=== PATIENT | male | born 1940 | race Caucasian/White ===

== ENCOUNTER 2019-03-22 15:12 | Emergency (ER) | payer MEDICARE ==
[~2019-03-22] VITALS: Ht 177.8 cm; Wt 128.6 kg
[2019-03-22 15:35] VITALS: Ht 177.8 cm; Wt 128.6 kg
[2019-03-22] MEDS ORDERED: OMEPRAZOLE20 M1 PO (15:37)
[2019-03-22] MEDS ORDERED: CRESTOR20 MG PO (15:37)
[2019-03-22] MEDS ORDERED: LASIX40 MG (15:38)
[2019-03-22] MEDS ORDERED: CHLORTHALIDONE25 MG PO (15:38)
[2019-03-22] MEDS ORDERED: TENORMIN25 MG PO (15:38)
[2019-03-22] MEDS ORDERED: CARDURA8 MG PO (15:39)
[2019-03-22] MEDS ORDERED: COLACE100 MG PO (15:40)
[2019-03-22] MEDS ORDERED: MULTI-DAY VITAM1 TAB PO (15:40)
[2019-03-22] MEDS ORDERED: K-TAB10 MEQ PO (15:40)
[2019-03-22] MEDS ORDERED: VITAMIN D3400 UNI1 PO (15:41)
[2019-03-22] MEDS ORDERED: VOLTAREN75 MG PO (17:07)
[2019-03-22 17:52] VITALS: BP 113/66
== END 2019-03-22 17:52 | disposition home or self-care (01) ==
LOC: D.ER 15:12
DX: S69.92XA Unspecified injury of left wrist, hand and finger(s), initial encounter (principal); X58.XXXA Exposure to other specified factors, initial encounter; Y93.89 Activity, other specified; Y92.89 Other specified places as the place of occurrence of the external cause